=== PATIENT | female | born 1965 | race Caucasian/White ===

== ENCOUNTER 2017-11-07 09:11 | Emergency (ER) | payer BC ==
[2017-11-07 09:34] VITALS: BP 126/79
--- NOTE | 2017-11-07 09:43 | UC ---
Respiratory Complaint HPI - HPI Summary HPI Summary: 52 yo female presents with 2 weeks of dry cough, intermittent wheezing, and feeling fatigued. She says that she does get allergies - has not taken anything OTC for these at this time. Had an albuterol inhaler rx'd "awhile" ago, but has lost it and has not been using it. She feels this would be helpful to have again. Denies fever, chills, SOB, chest pain, ALVARADO. - History of Current Complaint Chief Complaint: UCRespiratory Stated Complaint: COUGH Time Seen by Provider: 11/07/17 09:42 Hx Obtained From: Patient Hx Last Menstrual Period: july Onset/Duration: Gradual Onset Severity Initially: Mild Severity Currently: Moderate Pain Intensity: 0 Character: Cough: Nonproductive - Allergies/Home Medications Allergies/Adverse Reactions: Allergies Allergy/AdvReac Type Severity Reaction Status Date / Time ciprofloxacin Allergy Intermediate vomitting Verified 11/07/17 09:38 latex Allergy Intermediate Itching Verified 11/07/17 09:38 morphine Allergy Intermediate Unknown Verified 11/07/17 09:38 Reaction Details avocado Allergy Mild Unknown Verified 11/07/17 09:38 Reaction Details hydromorphone Allergy Unknown Verified 11/07/17 09:38 Reaction Details iodine Allergy Unknown Verified 11/07/17 09:38 Reaction Details Iodine and Iodide Containing Allergy vomitting Verified 11/07/17 09:38 Produc PMH/Surg Hx/FS Hx/Imm Hx Endocrine History: Thyroid Disease Psychological History: Anxiety - Surgical History Surgical History: Yes Surgery Procedure, Year, and Place: tonsils as a child, birthmark removed as a child, ethan, wisdom teeth, d+c 1992 [facility] [place], Lap david- [place]06/[place] [facility] [place] for bile leak-10/09/14 [facility] [place] and right colectomy-10/16 [facility] [place] gb-10/06/14, bile duct repair 10/09/14, COLON RESECTION 2014 - Family History Known Family History: Positive: Hypertension - grandparents, Other - cancer Negative: Cardiac Disease, Diabetes - Social History Occupation: Employed Full-time Lives: With Family Alcohol Use: Daily Alcohol Amount: 5-6 glass of wine Substance Use Type: None Smoking Status (MU): Former Smoker Type: Cigarettes Amount Used/How Often: 1 PPW Length of Time of Smoking/Using Tobacco: Began at 18 years Have You Smoked in the Last Year: Yes Household Exposure Type: Cigarettes - Immunization History Most Recent Influenza Vaccination: utd Most Recent Tetanus Shot: Unknown Most Recent Pneumonia Vaccination: Never Review of Systems Constitutional: Negative Skin: Negative Eyes: Negative ENT: Negative Respiratory: Cough Cardiovascular: Negative Gastrointestinal: Negative Neurovascular: Negative Neurological: Negative Psychological: Negative All Other Systems Reviewed And Are Negative: Yes Physical Exam - Summary Physical Exam Summary: GENERAL: NAD. WDWN. No pain distress. SKIN: No rashes, sores, lesions, or open wounds. HEENT: Head: AT/NC Eyes: EOM intact. Conjunctiva clear without inflammation or discharge. Ears: Hearing grossly normal. TMs intact, no bulging, erythema, or edema. Nose: Nasal mucosa pink and moist. NTTP maxillary and frontal sinus. Throat: Posterior oropharynx without exudates, erythema, or tonsillar enlargement. Uvula midline. NECK: Supple. Nontender. No lymphadenopathy. CHEST: CTAB. No r/r/w. No accessory muscle use. Breathing comfortably and in no distress. CV: RRR. Without m/r/g. Pulses intact. Brisk cap refill. NEURO: Alert. CN II-XII grossly intact. PSYCH: Age appropriate behavior. Triage Information Reviewed: Yes Vital Signs: Initial Vital Signs Temp 98.4 F 11/07/17 09:27 Pulse 79 11/07/17 09:27 Resp 20 11/07/17 09:27 BP 126/79 11/07/17 09:27 Pulse Ox 98 11/07/17 09:27 Diagnostic Evaluation - Laboratory O2 Sat by Pulse Oximetry: 98 Respiratory Course/Dx - Course Course Of Treatment: FSBG 82. Suspect allergies vs viral illness. She is concerned about this being a bacterial infection and is requesting an antibiotic. Rx for albuterol and amoxicillin. Advised to take daily claritin. F/ u with PCP if symptoms persist. - Differential Dx/Diagnosis Provider Diagnoses: Allergies Discharge - Sign-Out/Discharge Documenting (check all that apply): Discharge/Admit/Transfer - Discharge Plan Condition: Stable Disposition: HOME Prescriptions: Albuterol HFA INHALER* [Ventolin HFA Inhaler*] 1 - 2 puff INH Q6H PRN #1 mdi PRN Reason: Sob/Wheezing Amoxicillin PO (*) [Amoxicillin 500 MG CAP*] 500 mg PO Q12H #14 cap Patient Education Materials: Acute Bronchitis (ED) Referrals: Benton eDcker MD [Primary Care Provider] - Additional Instructions: If you develop a fever, shortness of breath, chest pain, new or worsening symptoms - please call your PCP or go to the ED. - Billing Disposition and Condition Condition: STABLE Disposition: HOME
== END 2017-11-07 10:19 | disposition home or self-care (01) ==
LOC: UCEAST 09:11
DX: T78.40XA Allergy, unspecified, initial encounter (principal); Z88.1 Allergy status to other antibiotic agents; Z91.040 Latex allergy status; Z88.5 Allergy status to narcotic agent; Z91.018 Allergy to other foods; Z87.891 Personal history of nicotine dependence
CPT/HCPCS: 99212; G0463

== ENCOUNTER 2018-04-07 17:10 | Emergency (ER) | payer BC ==
[2018-04-07 17:40] VITALS: BP 140/86
--- NOTE | 2018-04-07 17:56 | UC ---
UC General HPI - HPI Summary HPI Summary: Pleasant 52 yo female c/o shortness of breath since approx midafternoon today. However, has not felt right for several days. 04/02/18 traveled by air to [place]. While there, she and spouse drove up to higher altitude, at which point, she started to feel "not right" and foggy. Returned to [place] altitude on Friday (today is Friday), flew home yesterday. No swelling of legs. No GI sx. No rash. No vision / aud changes. No current h/a. LMP 3 yrs ago. + mild palpitations. - History of Current Complaint Chief Complaint: UCRespiratory Stated Complaint: SHORTNESS OF BREATH Time Seen by Provider: 04/07/18 17:55 Hx Obtained From: Patient Hx Last Menstrual Period: july Pain Intensity: 0 - Allergy/Home Medications Allergies/Adverse Reactions: Allergies Allergy/AdvReac Type Severity Reaction Status Date / Time ciprofloxacin Allergy Intermediate vomitting Verified 04/07/18 17:41 latex Allergy Intermediate Itching Verified 04/07/18 17:41 morphine Allergy Intermediate Unknown Verified 04/07/18 17:41 Reaction Details avocado Allergy Mild Unknown Verified 04/07/18 17:41 Reaction Details hydromorphone Allergy Unknown Verified 04/07/18 17:41 Reaction Details iodine Allergy Unknown Verified 04/07/18 17:41 Reaction Details Iodine and Iodide Containing Allergy vomitting Verified 04/07/18 17:41 Produc Home Medications: Home Medications Aspirin TAB* [Aspirin 325 MG TAB*] 650 mg PO ONCE PRN 04/07/18 [History Confirmed 04/07/18] Powder For Chronic Diarrhea* PRN 04/07/18 [History] PMH/Surg Hx/FS Hx/Imm Hx Previously Healthy: No - see pmh, CFS - Surgical History Surgical History: Yes Surgery Procedure, Year, and Place: tonsils as a child, birthmark removed as a child, ethan, wisdom teeth, [place] 1992 [facility] [place], [place]id[place] [facility]rosc[place] clip for bile leak-10/09/14 [facility], laparotomy and right colectomy-10/16 [facility], gb-10/06/14, bile duct repair 10/09/14, COLON RESECTION 2014 - Family History Known Family History: Positive: Hypertension - grandparents, Other - cancer Negative: Cardiac Disease, Diabetes - Social History Alcohol Use: Daily Alcohol Amount: average 5 glasses of wine/day Substance Use Type: None Smoking Status (MU): Current Some Day Smoker Type: Cigarettes Amount Used/How Often: 1 PPW Length of Time of Smoking/Using Tobacco: Began at 18 years Have You Smoked in the Last Year: Yes Household Exposure Type: Cigarettes - Immunization History Most Recent Influenza Vaccination: utd Most Recent Tetanus Shot: Unknown Most Recent Pneumonia Vaccination: Never Review of Systems Constitutional: Fatigue Skin: Negative Eyes: Negative ENT: Other - ear discomfort Respiratory: Shortness Of Breath Cardiovascular: Other - see hpi Gastrointestinal: Negative Genitourinary: Negative Motor: Other - see hpi Neurovascular: Negative Musculoskeletal: Other: - see hpi Neurological: Negative - see hpi Psychological: Negative - see hpi Is Patient Immunocompromised?: No All Other Systems Reviewed And Are Negative: Yes Physical Exam Triage Information Reviewed: Yes Appearance: Well-Appearing, Well-Nourished Vital Signs: Initial Vital Signs Temp 97.9 F 04/07/18 17:30 Pulse 68 04/07/18 17:30 Resp 16 04/07/18 17:30 BP 140/86 04/07/18 17:30 Pulse Ox 97 04/07/18 17:30 Vital Signs Reviewed: Yes Eye Exam: Normal - grossly normal ENT: Positive: Pharynx normal, TM dull - TM's martin au Neck exam: Normal Neck: Positive: Supple Respiratory: Positive: Chest non-tender, Lungs clear, Normal breath sounds, No respiratory distress, No accessory muscle use, Other: - saturation 97% r/a Cardiovascular: Positive: RRR, No Murmur, Pulses Normal, Brisk Capillary Refill Abdominal Exam: Normal Abdomen Description: Positive: Nontender Musculoskeletal Exam: Normal - gait steady Musculoskeletal: Positive: Strength Intact Neurological Exam: Normal - grossly nonfocal, no new c/o's Psychological Exam: Normal - conversing easily and appropriately Skin Exam: Normal - nondiaphoretic. No visible or reported rash. Course/Dx - Course Course Of Treatment: ucg negative. EKG reviewed, nad. Recommend further eval / tx in ED. D/w pt and . EMS offered, they accepted. (Sob). Diff dx includes albeit not limited to altitude sickness, embolic, chemistry, cardiac ( less likely). D/w [facility] ED. Ms. Christina and her were given the opportunity to ask several insightful questions, to which I answered to the best of my ability. - Differential Dx - Multi-Symptom Provider Diagnoses: Short of breath Discharge - Sign-Out/Discharge Documenting (check all that apply): Patient Departure All imaging exams completed and their final reports reviewed: No Studies - Discharge Plan Condition: Stable Disposition: TRANS HIGHER LVL OF CARE FAC Referrals: Benton Decker MD [Primary Care Provider] - - Billing Disposition and Condition Condition: STABLE Disposition: Trans Higher Lvl of Care Fac
== END 2018-04-07 19:15 | disposition short-term general hospital (02) ==
LOC: UCEAST 17:10
DX: R06.02 Shortness of breath (principal); R53.83 Other fatigue; H92.09 Otalgia, unspecified ear; Z88.5 Allergy status to narcotic agent; Z88.1 Allergy status to other antibiotic agents; Z91.040 Latex allergy status; Z72.0 Tobacco use
CPT/HCPCS: 84702; 93005; 99213; G0463

== ENCOUNTER 2018-04-07 19:38 | Emergency (ER) | payer BC ==
[2018-04-07 20:29] LABS: Urine Appearance Clear; Urine Blood Negative (Negative); Urine Color Colorless; Urine Ketones Negative (Negative); Urine Protein Negative (Negative); Urine Specific Gravity 1.003 (1.010-1.030); Urine Urobilinogen Negative (Negative)
[2018-04-07 20:54] LABS: ABS Basophils 0.1 10^3/ul (0-0.2); ABS Eosinophils 0.2 10^3/ul (0-0.6); ABS Lymphocytes 3.9 10^3/ul (1.0-4.8); ABS Monocytes 0.6 10^3/ul (0-0.8); ABS Neutrophils 5.6 10^3/ul (1.5-7.7); ABS Nucleated RBC 0 10^3/ul; Eosinophil % 1.9 % (0-6); Hematocrit 37 % (35-47); Hemoglobin 12.6 g/dl (12.0-16.0); Lymphocyte % 37.9 % (25-47); Mean Corpuscular HGB Conc 34 g/dl (31-36); Mean Corpuscular Hemoglobin 32 pg (27-31); Mean Corpuscular Volume 95 fL (80-97); Mean Platelet Volume 8.2 um3 (7.4-10.4); Nucleated Red Blood Cells % 0.1; Platelet Count 286 10^3/ul (150-450); Red Cell Distribution Width 14 % (10.5-15); White Blood Count 10.4 10^3/ul (3.5-10.8)
[2018-04-07 21:02] LABS: INR 0.86 (0.77-1.02)
[2018-04-07 21:21] LABS: EGFR Non-African American 85.7 (>60)
--- NOTE | 2018-04-07 22:25 | ED ---
Shortness of Breath - HPI Summary HPI Summary: Patient complains of sudden onset chest tightness and shortness of breath while reading today at around 3 PM. Symptoms are been persistent and continuous. Patient also states she has been traveling in [place] with extensive driving and traveling by plane. Also went to altitude of 8000 fever she started feeling bad, but then improved as she descended. Denies prior history of SOB, cardiac history, prominent pulmonary history. Denies nausea, diaphoresis, chest pain, history of blood clots, fever, cough, sore throat, change in urine, change in BM. Medical history is hypothyroid, chronic fatigue syndrome, anxiety. Nonsmoker. Denies recent trauma, surgery, history of blood clots, OCP , estrogen supplements. - History of Current Complaint Chief Complaint: EDShortnessOfBreath Time Seen by Provider: 04/07/18 19:57 Hx Obtained From: Patient Onset/Duration: Sudden Onset Timing: Constant Current Severity: Mild Dyspnea At: Rest Associated Signs & Symptoms: Negative Related History: Recent Trauma - Risk Factors Pulmonary Embolism: Recent Travel - Allergy/Home Medications Allergies/Adverse Reactions: Allergies Allergy/AdvReac Type Severity Reaction Status Date / Time ciprofloxacin Allergy Intermediate vomitting Verified 04/07/18 19:58 latex Allergy Intermediate Itching Verified 04/07/18 19:58 morphine Allergy Intermediate Unknown Verified 04/07/18 19:58 Reaction Details avocado Allergy Mild Unknown Verified 04/07/18 19:58 Reaction Details hydromorphone Allergy Unknown Verified 04/07/18 19:58 Reaction Details iodine Allergy Unknown Verified 04/07/18 19:58 Reaction Details Iodine and Iodide Containing Allergy vomitting Verified 04/07/18 19:58 Produc Home Medications: Home Medications Gabapentin CAP(*) [Neurontin 300 CAP(*)] 300 mg PO BID 04/07/18 [History Confirmed 04/07/18] Nystatin CREAM* 1 applic TOPICAL BID 04/07/18 [History Confirmed 04/07/18] PMH/Surg Hx/FS Hx/Imm Hx Endocrine/Hematology History: Reports: Hx Thyroid Disease - hypo Denies: Hx Diabetes, Hx Systemic Lupus Erythematosus Cardiovascular History: Denies: Hx Congestive Heart Failure, Hx Hypertension, Hx Pacemaker/ICD Respiratory History: Reports: Hx Sleep Apnea - LORE p CPAP at hospital. Does not use at home. 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 Denies: Hx Ulcer History: Reports: Hx Kidney Stones - HX OF Denies: Hx Dialysis, Hx Renal Disease Musculoskeletal History: Denies: Hx Rheumatoid Arthritis Sensory History: Denies: Hx Contacts or Glasses, Hx Hearing Aid Opthamlomology History: Denies: Hx Contacts or Glasses Neurological History: Reports: Other Neuro Impairments/Disorders - Chronic fatigue Psychiatric History: Reports: Hx Anxiety, Hx Depression - PTSD, Hx Post Traumatic Stress Disorder Denies: Hx Panic Disorder - Cancer History Hx Chemotherapy: No - Surgical History Surgery Procedure, Year, and Place: tonsils as a child, birthmark removed as a child, ethan, wisdom teeth, d+c 1992 [facility], Lap david- 10/06/2014 [facility] , laproscopy clip for bile leak-10/09/14 [facility], laparotomy and right colectomy-10/16 [facility], gb-10/06/14, bile duct repair 10/09/14, COLON RESECTION 2014 Hx Anesthesia Reactions: No Infectious Disease History: No Infectious Disease History: Denies: Hx Clostridium Difficile, Hx Hepatitis, Hx Human Immunodeficiency Virus (HIV), Hx of Known/Suspected MRSA, Hx Shingles, Hx Tuberculosis, Hx Known/ Suspected VRE, Hx Known/Suspected VRSA, History Other Infectious Disease, Traveled Outside the [place] in Last 30 Days - Family History Known Family History: Positive: Hypertension - grandparents, Other - cancer Negative: Cardiac Disease, Diabetes - Social History Alcohol Use: Daily Alcohol Amount: average 5 glasses of wine/day Substance Use Type: Reports: None Hx Tobacco Use: Yes Smoking Status (MU): Current Some Day Smoker Type: Cigarettes Amount Used/How Often: 1 PPW Length of Time of Smoking/Using Tobacco: Began at 18 years Have You Smoked in the Last Year: Yes Review of Systems Constitutional: Negative Eyes: Negative ENT: Negative Positive: Other - chest tightness Positive: Shortness Of Breath Gastrointestinal: Negative Genitourinary: Negative Musculoskeletal: Negative Skin: Negative Neurological: Negative Psychological: Normal All Other Systems Reviewed And Are Negative: Yes Physical Exam Triage Information Reviewed: Yes Vital Signs On Initial Exam: Initial Vitals Pulse Resp Pulse Ox 65 23 98 04/07/18 19:51 04/07/18 19:51 04/07/18 19:51 Vital Signs Reviewed: Yes Appearance: Positive: Well-Appearing Skin: Positive: Warm Head/Face: Positive: Normal Head/Face Inspection Eyes: Positive: Normal Neck: Positive: Supple Respiratory/Lung Sounds: Positive: Clear to Auscultation Cardiovascular: Positive: Normal Abdomen Description: Positive: Nontender Musculoskeletal: Positive: Normal Neurological: Positive: Normal Psychiatric: Positive: Normal AVPU Assessment: Alert - [place] Coma Scale Best Eye Response: 4 - Spontaneous Best Motor Response: 6 - Obeys Commands Best Verbal Response: 5 - Oriented Coma Scale Total: 15 Diagnostics - Vital Signs Vital Signs Temp Pulse Resp BP Pulse Ox 04/07/18 21:22 71 15 152/87 93 04/07/18 21:03 64 13 95 04/07/18 20:52 70 11 147/81 94 04/07/18 20:22 67 17 126/59 95 04/07/18 20:00 66 17 98 04/07/18 19:52 97.6 F 64 14 147/88 97 04/07/18 19:51 65 23 98 - Laboratory Lab Results: Lab Results 04/07/18 04/07/18 04/07/18 Range/Units 20:18 20:43 20:43 WBC 10.4 (3.5-10.8) 10^3/ul RBC 3.90 L (4.00-5.40) 10^6/ul Hgb 12.6 (12.0-16.0) g/dl Hct 37 (35-47) % MCV 95 (80-97) fL MCH 32 H (27-31) pg MCHC 34 (31-36) g/dl RDW 14 (10.5-15) % Plt Count 286 (150-450) 10^3/ul MPV 8.2 (7.4-10.4) um3 Neut % (Auto) 53.8 (38-83) % Lymph % (Auto) 37.9 (25-47) % [place] % (Auto) 5.9 (0-7) % Eos % (Auto) 1.9 (0-6) % Baso % (Auto) 0.5 (0-2) % Absolute Neuts (auto) 5.6 (1.5-7.7) 10^3/ul Absolute Lymphs (auto) 3.9 (1.0-4.8) 10^3/ul Absolute Monos (auto) 0.6 (0-0.8) 10^3/ul Absolute Eos (auto) 0.2 (0-0.6) 10^3/ul Absolute Basos (auto) 0.1 (0-0.2) 10^3/ul Absolute Nucleated RBC 0 10^3/ul Nucleated RBC % 0.1 INR (Anticoag Therapy) 0.86 (0.77-1.02) D-Dimer, Quantitative < 200 (Less Than 230) ng/mL Sodium (135-145) mmol/L Potassium (3.5-5.0) mmol/L Chloride (101-111) mmol/L Carbon Dioxide (22-32) mmol/L Anion Gap (2-11) mmol/L BUN (6-24) mg/dL Creatinine (0.51-0.95) mg/dL Est GFR ( Amer) (>60) Est GFR (Non-Af Amer) (>60) BUN/Creatinine Ratio (8-20) Glucose (70-100) mg/dL Calcium (8.6-10.3) mg/dL Total Bilirubin (0.2-1.0) mg/dL AST (13-39) U/L ALT (7-52) U/L Alkaline Phosphatase (34-104) U/L Troponin I (<0.04) ng/mL C-Reactive Protein (<8.01) mg/L B-Natriuretic Peptide ( - 100) pg/mL Total Protein (6.4-8.9) g/dL Albumin (3.2-5.2) g/dL Globulin (2-4) g/dL Albumin/Globulin Ratio (1-3) TSH (0.34-5.60) mcIU/mL Urine Color Colorless Urine Appearance Clear Urine pH 6.0 (5-9) Ur Specific [place] 1.003 L (1.010-1.030) Urine Protein Negative (Negative) Urine Ketones Negative (Negative) Urine Blood Negative (Negative) Urine Nitrate Negative (Negative) Urine Bilirubin Negative (Negative) Urine Urobilinogen Negative (Negative) Ur Leukocyte Esterase Negative (Negative) Urine Glucose Negative (Negative) 04/07/18 04/07/18 04/07/18 Range/Units 20:43 20:43 20:43 WBC (3.5-10.8) 10^3/ul RBC (4.00-5.40) 10^6/ul Hgb (12.0-16.0) g/dl Hct (35-47) % MCV (80-97) fL MCH (27-31) pg MCHC (31-36) g/dl RDW (10.5-15) % Plt Count (150-450) 10^3/ul MPV (7.4-10.4) um3 Neut % (Auto) (38-83) % Lymph % (Auto) (25-47) % [place] % (Auto) (0-7) % Eos % (Auto) (0-6) % Baso % (Auto) (0-2) % Absolute Neuts (auto) (1.5-7.7) 10^3/ul Absolute Lymphs (auto) (1.0-4.8) 10^3/ul Absolute Monos (auto) (0-0.8) 10^3/ul Absolute Eos (auto) (0-0.6) 10^3/ul Absolute Basos (auto) (0-0.2) 10^3/ul Absolute Nucleated RBC 10^3/ul Nucleated RBC % INR (Anticoag Therapy) (0.77-1.02) D-Dimer, Quantitative (Less Than 230) ng/mL Sodium 137 (135-145) mmol/L Potassium 3.7 (3.5-5.0) mmol/L Chloride 105 (101-111) mmol/L Carbon Dioxide 22 (22-32) mmol/L Anion Gap 10 (2-11) mmol/L BUN 17 (6-24) mg/dL Creatinine 0.72 (0.51-0.95) mg/dL Est GFR ( Amer) 103.7 (>60) Est GFR (Non-Af Amer) 85.7 (>60) BUN/Creatinine Ratio 23.6 H (8-20) Glucose 90 (70-100) mg/dL Calcium 9.4 (8.6-10.3) mg/dL Total Bilirubin 0.70 (0.2-1.0) mg/dL AST 22 (13-39) U/L ALT 41 (7-52) U/L Alkaline Phosphatase 75 (34-104) U/L Troponin I 0.00 (<0.04) ng/mL C-Reactive Protein 4.61 (<8.01) mg/L B-Natriuretic Peptide 12 ( - 100) pg/mL Total Protein 6.9 (6.4-8.9) g/dL Albumin 4.5 (3.2-5.2) g/dL Globulin 2.4 (2-4) g/dL Albumin/Globulin Ratio 1.9 (1-3) TSH 40.16 H (0.34-5.60) mcIU/mL Urine Color Urine Appearance Urine pH (5-9) Ur Specific [place] (1.010-1.030) Urine Protein (Negative) Urine Ketones (Negative) Urine Blood (Negative) Urine Nitrate (Negative) Urine Bilirubin (Negative) Urine Urobilinogen (Negative) Ur Leukocyte Esterase (Negative) Urine Glucose (Negative) Result Diagrams: 04/07/18 20:43 04/07/18 20:43 Lab Statement: Any lab studies that have been ordered have been reviewed, and results considered in the medical decision making process. - Radiology cxr Xray Interpretation: No Acute Changes Radiology Interpretation Completed By: ED Physician - EKG 1 Cardiac Rate: NL EKG Rhythm: Sinus Rhythm ST Segment: Non-Specific Ectopy: None Course/Dx - Course Course Of Treatment: Patient complains of sudden onset chest tightness and shortness of breath while reading today at around 3 PM. Symptoms are been persistent and continuous. Patient also states she has been traveling in [place] with extensive driving and traveling by plane. Also went to altitude of 8000 fever she started feeling bad, but then improved as she descended. Denies prior history of SOB, cardiac history, prominent pulmonary history. Denies nausea, diaphoresis, chest pain, history of blood clots, fever, cough, sore throat, change in urine, change in BM. Medical history is hypothyroid, chronic fatigue syndrome, anxiety. Nonsmoker. Denies recent trauma, surgery, history of blood clots, OCP, estrogen supplements. TSH 40.16. D-dimer less than 200. Labs otherwise unremarkable. Vital signs within normal limits. Chest x-ray unremarkable EKG normal. Follow-up with primary care for TSH. - Diagnoses Provider Diagnoses: Shortness of breath, Hypothyroid Discharge - Sign-Out/Discharge Documenting (check all that apply): Patient Departure - Discharge Plan Condition: Stable Disposition: HOME Patient Education Materials: Hypothyroidism (ED), Shortness of Breath (ED) Referrals: Benton Decker MD [Primary Care Provider] - Additional Instructions: Follow-up with primary care. Return to the ED for any new or worsening symptoms - Billing Disposition and Condition Condition: STABLE Disposition: Home
[2018-04-07 23:19] VITALS: BP 142/86
--- NOTE | 2018-04-08 07:54 | RAD ---
HISTORY: sob COMPARISONS: April 30, 2016 VIEWS: 1: frontal AP view of the chest at 8:24 PM FINDINGS: LINES AND TUBES: None. CARDIOMEDIASTINAL SILHOUETTE: The cardiomediastinal silhouette is normal for portable technique. PLEURA: The costophrenic angles are sharp. No pleural abnormalities are noted. LUNG PARENCHYMA: The lungs are clear. ABDOMEN: The upper abdomen is clear. There is no subphrenic gas. BONES AND SOFT TISSUES: No bone or soft tissue abnormalities are noted. IMPRESSION: NO ACTIVE CARDIOPULMONARY DISEASE. R0
== END 2018-04-07 23:20 | disposition home or self-care (01) ==
LOC: ED 19:38
DX: R06.02 Shortness of breath (principal); E03.9 Hypothyroidism, unspecified; Z72.0 Tobacco use
CPT/HCPCS: 36415; 71045; 80053; 81003; 83880; 84443; 84484; 85025; 85379; 85610; 86140; 99283

== ENCOUNTER 2023-09-04 08:28 | Observation (INO) ==
[2023-09-04 08:53] LABS: ABS Basophils 0.1 10^3/uL (0.0-0.1); ABS Eosinophils 1.2 10^3/uL (0.0-0.5); ABS Lymphocytes 3.2 10^3/uL (1.0-4.8); ABS Monocytes 0.6 10^3/uL (0.0-0.9); ABS Neutrophils 8.6 10^3/uL (1.5-7.6); Eosinophil % 8.6 %; Hematocrit 37.5 % (35-45); Hemoglobin 12.5 g/dL (11.5-14.3); Lymphocyte % 23.4 %; Mean Corpuscular Hemoglobin 30.6 pg (27-33); Mean Corpuscular Hgb Conc 33.4 g/dL (31-36); Mean Corpuscular Volume 91.8 fL (80-97); Mean Platelet Volume 7.2 fL (7.5-11.2); Platelet Count 377 10^3/uL (150-450); Red Blood Count 4.08 10^6/uL (3.63-4.92); Red Cell Distribution Width 12.8 % (12-17); White Blood Count 13.7 10^3/uL (3.8-11.8)
[2023-09-04 09:44] LABS: Albumin 3.9 g/dL (3.2-5.2); Albumin/Globulin Ratio 1.6 (1-3); Calcium 8.8 mg/dL (8.6-10.3); Creatinine, Serum 0.62 mg/dL (0.51-0.95); Globulin 2.4 g/dL (2-4); Potassium 4.4 mmol/L (3.5-5.0); Total Bilirubin 0.3 mg/dL (0.2-1.0); Total Protein 6.3 g/dL (6.4-8.9); eGFR CKD-EPI 105.1 (>60)
[2023-09-04 10:08] LABS: INR 0.91 (0.83-1.13)
[2023-09-04 10:23] LABS: High Sensitivity Troponin 1 Hr < 3 pg/mL (<15)
[2023-09-04] MEDS: NS 0.9% 1000 ml BAG 1,000 ML IV ONE (15:42)
[2023-09-04 17:35] LABS: Urine Appearance Clear; Urine Bilirubin Negative (Negative); Urine Blood Negative (Negative); Urine Color Light-Yellow; Urine Glucose Negative (Negative); Urine Ketones Negative (Negative); Urine Nitrite Negative (Negative); Urine Protein Negative (Negative); Urine Specific Gravity 1.012 (1.002-1.030); Urine Urobilinogen Negative (Negative); Urine pH 7.5 (5.0-8.0)
[2023-09-04] MEDS: Iohexol 350 (CONTRAST) 500 ML MDV IV ONE (18:16)
[2023-09-04] MEDS ORDERED: Polyethylene Glycol 3350 17 GM PACKET PO PRN (22:31)
[2023-09-04] MEDS ORDERED: Al Hydrox/Mg Hydrox/Simet LIQ 30 ML UDC PO PRN (22:31)
[2023-09-04 22:55] LABS: C Reactive Protein 28.94 mg/L (<8.01)
[2023-09-05 06:19] LABS: ABS Basophils 0.1 10^3/uL (0.0-0.1); ABS Lymphocytes 2.1 10^3/uL (1.0-4.8); ABS Monocytes 0.6 10^3/uL (0.0-0.9); ABS Neutrophils 7.1 10^3/uL (1.5-7.6); Eosinophil % 8.9 %; Hematocrit 35.3 % (35-45); Hemoglobin 12.2 g/dL (11.5-14.3); Lymphocyte % 19.4 %; Mean Corpuscular Hemoglobin 31.4 pg (27-33); Mean Corpuscular Hgb Conc 34.5 g/dL (31-36); Mean Corpuscular Volume 90.9 fL (80-97); Mean Platelet Volume 7.3 fL (7.5-11.2); Platelet Count 357 10^3/uL (150-450); Red Blood Count 3.88 10^6/uL (3.63-4.92); White Blood Count 10.8 10^3/uL (3.8-11.8)
[2023-09-05 14:06] LABS: Body Fluid Total Nucleated 9192 /mcL
[2023-09-05 15:16] LABS: Body Fluid Mono 20 %; Body Fluid Other Cells 74; Body Fluid Total Cells Counted 200
[2023-09-05 16:09] LABS: Body Fluid Appearance Bloody; Body Fluid Color Red
[2023-09-05 16:14] LABS: Body Fluid Source Pleural Fluid
[2023-09-05 16:34] VITALS: BP 133/80
[2023-09-08 10:12] LABS: Fluid Type, Protein, Total PLEURAL; Glucose, BF 101 mg/dL; Total Protein, BF 4.3 g/dL
[2023-09-08 10:52] LABS: Lactate Dehydrogenase, BF 365 U/L
[2023-09-08 10:53] LABS: Fluid Type, Amylase PLEURAL; Fluid Type: PLEURAL
[2023-09-08 11:43] LABS: Fluid Type: PLEURAL; Triglycerides (BF) 83 mg/dL
== END 2023-09-05 16:34 | disposition home or self-care (01) ==
LOC: ED 08:28 → EDHOLD 08:28 → SUATTDRO 22:31 → EDHOLD 09-05 16:33
PROVIDERS: ADMIT Internal Medicine; ATTEND Internal Medicine